=== PATIENT | male | born 1990 | race Caucasian/White ===

== ENCOUNTER 2018-05-23 19:18 | Emergency (ER) | payer BC ==
[~2018-05-23] VITALS: Ht 188 cm; Wt 69.6 kg
[~2018-05-23 19:18] MED LIST: MEDROL DOSEPAK4 MG PO; [UNRECOGNIZED DRUG - REMARK]
[2018-05-23 21:41] VITALS: BP 123/82
== END 2018-05-23 21:42 | disposition home or self-care (01) ==
LOC: EME 19:18
PROC: 0HQKXZZ Repair Right Lower Leg Skin, External Approach (ICD-10-PCS; principal; 2018-05-23)
DX: S81.811A Laceration without foreign body, right lower leg, initial encounter (principal); S80.11XA Contusion of right lower leg, initial encounter; V18.0XXA Pedal cycle driver injured in noncollision transport accident in nontraffic accident, initial encounter; Y93.55 Activity, bike riding
CPT/HCPCS: 73590; 99281; 99283